=== PATIENT | female | born 1990 | race Hispanic/Latino ===

== ENCOUNTER 2020-05-28 09:08 | Outpatient (CLI) | payer SELFPAY ==
[2020-05-28 22:14] LABS: SARS-CoV-2 PCR by NAA Not Detected (NotDetected)
== END 2020-05-28 09:09 | disposition home or self-care (01) ==
LOC: LABBT 09:08
PROVIDERS: ATTEND Family Medicine
DX: Z20.822 Contact with and (suspected) exposure to COVID-19 (principal)
CPT/HCPCS: 87635; U0003; U0005

== ENCOUNTER 2020-05-31 06:58 | Inpatient (IN) | payer MEDICAID, SELFPAY ==
[2020-05-31] MEDS ORDERED: Promethazine HCl 25 MG/ML VIAL IM PRN ×5 (07:21→19:57)
[2020-05-31] MEDS ORDERED: Ondansetron PF 4 MG/2 ML Vial IVP PRN ×4 (07:21→19:57)
[2020-05-31] MEDS ORDERED: Azithromycin 500 MG in Sodium Chloride 0.9% 250 ML 250 ML IVPB SCH (07:21)
[2020-05-31] MEDS ORDERED: CEFAZOLIN 2 GM in Premix Bag 1 BAG IVPB SCH (07:21)
[2020-05-31] MEDS ORDERED: Bicitra 30 ML UDCUP PO PRN (07:21)
[2020-05-31] MEDS ORDERED: Lactated Ringer's 1,000 ML IV SCH (07:21)
[2020-05-31] MEDS ORDERED: Famotidine/PF 20 mg/2ml Vial SLOW IVP PRN (07:21)
[2020-05-31] MEDS ORDERED: hydrALAZINE 20 MG/ML VIAL SLOW IVP PRN ×2 (07:21→11:03)
[2020-05-31] MEDS ORDERED: Butorphanol Tartrate 1 MG/ML VIAL SLOW IVP PRN (07:21)
[2020-05-31] MEDS ORDERED: Morphine PF 10 MG/10 ML VIAL ONE (07:23)
[2020-05-31] MEDS ORDERED: Ondansetron PF 4 MG/2 ML Vial ONE (07:23)
[2020-05-31] MEDS ORDERED: Dexamethasone 4 mg/ml Vial ONE (07:23)
[2020-05-31] MEDS ORDERED: Phenylephrine 40 MG/NS 250 ML 250 ML ONE (07:23)
[2020-05-31] MEDS ORDERED: Ketorolac Tromethamine 30 MG/ML VIAL ONE (07:24)
[2020-05-31] MEDS ORDERED: Oxytocin 10 UNITS/ML VIAL ONE (07:24)
[2020-05-31 07:26] VITALS: BMI 32.2
[2020-05-31 07:48] LABS: Hemoglobin 13.2 g/dL (12.0-16.0); Mean Corpuscular Hemoglobin 32.6 pg (27.0-31.0); Mean Corpuscular Volume 92.9 fL (78.0-98.0); Mean Platelet Volume 9.5 fL (7.4-10.4); Platelet Count 168 thou/uL (130-400); RBC Distribution Width 11.8 % (11.5-14.5); Red Blood Cell (RBC) Count 4.05 mill/uL (4.20-5.40); White Blood Cell (WBC) Count 5.7 thou/uL (4.8-10.8)
[2020-05-31 08:22] LABS: Syphilis Antibody Nonreactive (Nonreactive); Syphilis Antibody Index 0.05 S/CO (<1.00 Non-Reactive)
[2020-05-31 08:23] LABS: HBSAg Index 0.21 S/CO (0-0.99); Hep B Surf Ag Non-Reactive S/CO (NonReactive)
[2020-05-31] MEDS ORDERED: Ondansetron HCl/PF 4 MG/2 ML Vial IVP PRN (10:03)
[2020-05-31] MEDS ORDERED: Promethazine HCl 25 MG/ML VIAL SLOW IVP PRN (10:03)
[2020-05-31] MEDS ORDERED: HYDROcodone/Acetaminophen 5/325 mg Tablet PO PRN ×4 (11:03→21:13)
[2020-05-31] MEDS ORDERED: Bisacodyl 10 MG SUPP PR PRN (11:03)
[2020-05-31] MEDS ORDERED: Lanolin Ointment 7 GM TUBE TOP PRN (11:03)
[2020-05-31] MEDS ORDERED: Meperidine HCl/PF 25 MG/ML VIAL IM PRN ×2 (11:03→21:13)
[2020-05-31] MEDS ORDERED: Adacel (T-DAP) 0.5 ML SYRINGE IM ONE (11:03)
[2020-05-31] MEDS ORDERED: NS w/ Oxytocin 30 units 500 ML IV SCH (11:03)
[2020-05-31] MEDS ORDERED: diphenhydrAMINE 25 MG CAP PO PRN (11:03)
[2020-05-31] MEDS ORDERED: NS w/ Oxytocin 30 units 500 ML ONE (11:41)
--- NOTE | 2020-05-31 11:54 | PDOC.OPDEL ---
OB Operative/Delivery Note - Additional Findings/Plan Compilations/Other Findings: Procedure Note Date of Procedure: 05/31/20 Resident Surgeon: Marilee Bazan MD PGY-3 Attending Surgeon: Sami Stafford MD Procedure: Repeat low transverse caesarean section Preoperative Diagnosis: 1) Term intrauterine 2) A1GDM 3) Hx of C/S x2 4) Hx of Vertical skin incision Postoperative Diagnosis: 1) Term intrauterine , delivered 2) A1GDM 3) Hx of C/S x2 4) Fetus in oblique breech position Anesthesia: spinal Indications: The patient is a 30 year old female at 39.1 weeks gestation who presents for a repeat scheduled delivered at 0910 on 05/31/20 Procedure in Detail: After risks, benefits, and alternatives were explained to the patient, she gave informed consent. Pre-operative antibiotics included Cefazolin 2 gram IV and Azithromycin 500mg. The patient was taken to the operat ing room and spinal anesthesia was initiated. She was placed in the supine position with a left tilt and prepped and draped in usual sterile fashion. A Vertical incision was made with a scalpel and carried down to the level of the fascia which was sharply nicked. The fascial cut was extended superior and inferiorly with Aguilar scissors. The recti were divided digitally and retracted manually. The peritoneum was entered bluntly and retracted manually. Bladder blade was placed. A low transverse score was made with the scalpel and the uterus was entered in the midline with the scalpel. Clear fluid was seen. The hysterotomy was extended manually. The infant was noted to be in an oblique breech position and was easily delivered in the usual fashion. Mouth and nares were bulb suctioned. Cord clamped and cut and grossly normal female infant was handed to waiting nurse. Cord blood was obtained. Placenta was expectantly extracted, found to be intact with 3 vessel cord and discarded. The uterus was externalized and the endometrium was curetted with a dry lap. The uterus was closed with a running locking #1 Monocryl suture. Following this bleeding on the lateral edges was noted, Figure of eights were thrown using 0 Vicryl and hysterotomy was noted to be hemostatic. Septrafilm was applied. The abdomen was suctioned free of clots. The uterus was internalized and the hysterotomy was again noted to be hemostatic. The fascia was closed with a running non-locking 0-PDS suture. The subcutaneous tissue was irrigated and bleeders were cauterized. Subcutaneous tissue was closed with 2-0 plain gut. The skin was approximated with luc and a pressure dressing was placed. All counts were correct. The patient tolerated the procedure well and was taken to the recovery room in stable condition. Quantitative Blood Loss: 692ml Complications: None Specimens: Cord blood sent to lab for blood type Findings: Grossly normal female with Apgars of 8 and 8. Grossly normal placenta with 3 vessel cord discarded. Drains: Pires to gravity draining clear urine
[2020-05-31] MEDS ORDERED: Docusate Calcium (SURFAK) 240 MG CAP PO SCH (12:00)
[2020-05-31] MEDS ORDERED: Prenatal Vitamin 1 TAB PO SCH (12:00)
[2020-05-31] MEDS ORDERED: Ferrous Sulfate 325 MG TAB PO SCH (12:00)
[2020-05-31] MEDS: Ferrous Sulfate 325 MG TAB PO SCH (17:46)
[2020-05-31] MEDS: Simethicone Chewable 80 MG TAB PO PRN (18:29)
[2020-05-31] MEDS ORDERED: Hydrocerin (Eucerin) Cream 120 gm Jar TOP PRN (19:30)
[2020-05-31] MEDS ORDERED: Promethazine HCl 25 MG SUPP PR PRN ×2 (19:30→19:57)
[2020-05-31] MEDS ORDERED: Naloxone HCl 0.4 mg/ml Vial IV PRN ×4 (19:30→19:57)
[2020-05-31] MEDS ORDERED: NO PO,IM,IV OR SC NARCOTICS FOR 12HR EXCEPT BY ANESTHESIA PO SCH (19:30)
[2020-05-31] MEDS ORDERED: diphenhydrAMINE 50 MG/ML VIAL IVP PRN ×2 (19:30→19:57)
[2020-05-31] MEDS ORDERED: Ketorolac Tromethamine 30 MG/ML VIAL IVP PRN (19:57)
[2020-05-31] MEDS ORDERED: Naloxone HCl 0.4 mg/ml Vial IVP PRN ×2 (19:57)
[2020-05-31] MEDS ORDERED: Communication Order-Pharmacy FS SCH (20:00)
[2020-05-31] MEDS: Docusate Calcium (SURFAK) 240 MG CAP PO SCH (21:00)
[2020-06-01] MEDS: Ketorolac Tromethamine 30 MG/ML VIAL IVP PRN ×2 (00:19→09:00)
[2020-06-01] MEDS: Sodium Chloride 0.9% 10 ML ONE ×2 (00:25→09:02)
[2020-06-01 05:27] LABS: Hemoglobin 10.5 g/dL (12.0-16.0); Mean Corpuscular HGB CONC 35.9 g/dL (32.0-36.0); Mean Corpuscular Hemoglobin 34.4 pg (27.0-31.0); Mean Corpuscular Volume 95.7 fL (78.0-98.0); Mean Platelet Volume 9.2 fL (7.4-10.4); Platelet Count 143 thou/uL (130-400); RBC Distribution Width 11.8 % (11.5-14.5); Red Blood Cell (RBC) Count 3.05 mill/uL (4.20-5.40); White Blood Cell (WBC) Count 9.6 thou/uL (4.8-10.8)
[2020-06-01] MEDS ORDERED: HYDROcodone/Acetaminophen 5/325 mg Tablet PO PRN (08:00)
[2020-06-01] MEDS ORDERED: Meperidine HCl/PF 25 MG/ML VIAL IM PRN (08:00)
[2020-06-01] MEDS: Prenatal Vitamin 1 TAB PO SCH (09:03)
[2020-06-01] MEDS: Ferrous Sulfate 325 MG TAB PO SCH ×2 (09:03→13:45)
[2020-06-01] MEDS: Docusate Calcium (SURFAK) 240 MG CAP PO SCH ×2 (09:03→21:29)
[2020-06-01] MEDS: Ibuprofen 800 MG TAB PO SCH ×2 (13:18→21:29)
[2020-06-01] MEDS ORDERED: Ibuprofen 800 MG TAB PO SCH (14:00)
[2020-06-01] MEDS: HYDROcodone/Acetaminophen 5/325 mg Tablet PO PRN (16:54)
[2020-06-01] MEDS: Simethicone Chewable 80 MG TAB PO PRN (16:55)
[2020-06-02] MEDS: Ibuprofen 800 MG TAB PO SCH ×3 (05:50→21:56)
[2020-06-02] MEDS: Ferrous Sulfate 325 MG TAB PO SCH ×2 (08:07→15:48)
[2020-06-02] MEDS: Docusate Calcium (SURFAK) 240 MG CAP PO SCH ×2 (08:29→21:56)
[2020-06-02] MEDS: Prenatal Vitamin 1 TAB PO SCH (08:30)
[2020-06-03] MEDS: Ibuprofen 800 MG TAB PO SCH ×2 (06:12→14:53)
[2020-06-03 08:03] VITALS: BP 103/59; TEMP 98.1
[2020-06-03] MEDS: Prenatal Vitamin 1 TAB PO SCH (10:02)
[2020-06-03] MEDS: Docusate Calcium (SURFAK) 240 MG CAP PO SCH (10:03)
[2020-06-03] MEDS: HYDROcodone/Acetaminophen 5/325 mg Tablet PO PRN ×2 (10:03→18:34)
[2020-06-03] MEDS: Ferrous Sulfate 325 MG TAB PO SCH (10:38)
== END 2020-06-03 19:00 | disposition home or self-care (01) | DRG 788 ==
LOC: L&D 06:58 → 3SW 11:51
PROVIDERS: ADMIT Family Medicine; ATTEND Family Medicine
PROC: 10D00Z1 Extraction of Products of Conception, Low, Open Approach (ICD-10-PCS; principal; 2020-05-31)
DX: O34.212 Maternal care for vertical scar from previous cesarean delivery (principal); O24.429 Gestational diabetes mellitus in childbirth, unspecified control; O32.1XX0 Maternal care for breech presentation, not applicable or unspecified; Z3A.39 39 weeks gestation of pregnancy; Z37.0 Single live birth
CPT/HCPCS: 36415; 51702; 85027; 86780; 86850; 86900; 86901; 87340; J0690; J1100; J1885; J2270; J2405; J2590